=== PATIENT | male | born 1950 | race Caucasian/White ===

== ENCOUNTER 2016-08-20 17:21 | Emergency (ER) | payer OTHER ==
[~2016-08-20] VITALS: Ht 170.2 cm; Wt 79.4 kg
[2016-08-20] MEDS ORDERED: fentaNYL INJECTION 100 MCG/2 ML AMP ONE (17:29)
[2016-08-20] MEDS ORDERED: fentaNYL INJECTION 100 MCG/2 ML AMP IVP STA (17:36)
[2016-08-20] MEDS ORDERED: NS 100 ML (IVPB) BAG IV ONE (17:45)
[2016-08-20] MEDS ORDERED: IOHEXOL 350 MG/ML 100 ML (OMNIPAQUE 350) VIAL IV ONE (17:45)
[2016-08-20 17:47] LABS: BASOPHILS # (AUTO) 0.1 10^3/uL (0.0-0.1); BASOPHILS % (AUTO) 1 % (0-10); EOSINOPHILS # (AUTO) 0.7 10^3/uL (0.0-0.3); EOSINOPHILS % (AUTO) 7 % (0-10); LYMPHOCYTES # (AUTO) 2.8 X 10^3 (1.0-4.0); LYMPHOCYTES % (AUTO) 29 % (12-44); MEAN CORPUSCULAR HEMOGLOBIN 28 PG (25-34); MEAN CORPUSCULAR HGB CONC 34 G/DL (32-36); MEAN CORPUSCULAR VOLUME 83 FL (80-99); MONOCYTES % (AUTO) 10 % (0-12); NEUTROPHILS # (AUTO) 5.2 X 10^3 (1.8-7.8); NEUTROPHILS % (AUTO) 54 % (42-75); PLATELET COUNT 232 10^3/uL (130-400); RED BLOOD COUNT 5.31 10^6/uL (4.35-5.85); RED CELL DISTRIBUTION WIDTH 13.5 % (10.0-14.5); WHITE BLOOD COUNT 9.7 10^3/uL (4.3-11.0)
--- NOTE | 2016-08-20 17:52 | ED Fall/Injury ---
General Chief Complaint: Abdominal/GI Problems Stated Complaint: CHEST PAIN/SOB Source: patient Exam Limitations: no limitations (RACHEAL BIRCH MD) History of Present Illness Time seen by provider: 17:26 Initial Comments Here with complaint of left upper quadrant abdominal pain and left low chest wall pain associated with shortness of breath. He reports falling while pushing a box into his van on Friday morning (2 days ago) and hitting the left upper quadrant of the abdomen. He states that took his breath away that day. 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 He cannot outside of town when he started having severe left upper quadrant and left low chest wall pain. Abdomen is tense. He is having difficult time with taking deep breaths. Pain is reportedly 10 out of 10. Denies other injuries or concerns. Occurred: other (2 days ago) Severity: moderate, severe Injuries/Pain Location: chest, abdomen Context: slipped Loss of Consciousness: no loss of consciousness Modifying Factors: Improves With Immobilization, Worse With Movement Associated Symptoms (Fall): Abdominal Pain, Chest Pain, No Headache, Muscle Spasms, No Nausea/Vomiting, No Seizures, Shortness of Air (RACHEAL BIRCH MD ) Allergies and Home Medications Allergies Coded Allergies: No Known Drug Allergies (Unverified , 08/20/16) Home Medications Azithromycin 250 Mg Tablet, 250 MG PO UD, #6 TAKE 2 TABLETS ON DAY ONE THEN TAKE 1 TABLET DAILY FOR FOUR MORE DAYS Prescribed by: GRACIE GUILLEN on 08/20/161925 Hydrocodone/Acetaminophen 1 Each Tablet, 1-2 EACH PO Q6H PRN for PAIN, #20 Prescribed by: GRACIE GUILLEN on 08/20/161925 Constitutional: see HPI, No chills, No fever Eyes: No Symptoms Reported Ears, Nose, Mouth, Throat: no symptoms reported Respiratory: see HPI, short of breath, No wheezing Cardiovascular: see HPI, chest pain, No palpitations Gastrointestinal: abdominal pain, No diarrhea, No nausea, No vomiting Genitourinary: no symptoms reported Musculoskeletal: see HPI, No back pain, muscle pain Skin: no symptoms reported, No change in color, No lesions (RACHEAL BIRCH MD) All Other Systems Reviewed Negative Unless Noted: Yes (RACHEAL BIRCH MD) Past Hsbfnvx-Eeytsc-Qrppdn Hx Patient Social History Alcohol Use: Denies Use Recreational Drug Use: No Smoking Status: Never a Smoker (RACHEAL BIRCH MD) Seasonal Allergies Seasonal Allergies: No (RACHEAL BIRCH MD) Surgeries HX Surgeries: Yes Surgeries: Abdominal (RACHEAL BIRCH MD) Respiratory Hx Respiratory Disorders: No (RACHEAL BIRCH MD) Cardiovascular Hx Cardiac Disorders: No (RACHEAL BIRCH MD) Neurological Hx Neurological Disorders: No (RACHEAL BIRCH MD) Genitourinary Hx Genitourinary Disorders: No (RACHEAL BIRCH MD) Gastrointestinal Hx Gastrointestinal Disorders: No (RACHEAL BIRCH MD) Hx Gastrointestinal Disorders: Yes Gastrointestinal Disorders: Ulcer (history of perforated ulcer) (GRACIE VILLAGOMEZ MD) Musculoskeletal Hx Musculoskeletal Disorders: No (RACHEAL BIRCH MD) Endocrine Hx Endocrine Disorders: No (RACHEAL BIRCH MD) HEENT HX ENT Disorders: No (RACHEAL BIRCH MD) Cancer Hx Cancer: No (RACHEAL BIRCH MD) Reviewed Nursing Assessment Reviewed/Agree w Nursing PMH: Yes (RACHEAL BIRCH MD) Family Medical History Significant Family History: No Pertinent Family Hx (RACHEAL BIRCH MD) Physical Exam Vital Signs Vital Sign - Last 12Hours 08/20/16 17:21 Temp 98.3 Pulse 74 Resp 40 B/P (MAP) 181/105 Pulse Ox 94 O2 Delivery Room Air (GRACIE VILLAGOMEZ MD) Vital Signs Capillary Refill : (RACHEAL BIRCH MD) General Appearance: WD/WN, moderate distress HEENT: PERRL/EOMI, pharynx normal Neck: full range of motion, supple Cardiovascular: regular rate, rhythm, no murmur Respiratory: lungs clear, no accessory muscle use, other (tachypnea With short breaths due to pain) Peripheral Pulses: 2+ Dorsalis Pedis (R), 2+ Left Dors-Pedis (L), 2+ Radial Pulses (R), 2+ Radial Pulses (L) Gastrointestinal: tenderness, other (somewhat rigid and pain greatest in the left upper quadrant) Back: normal inspection, no CVA tenderness, no vertebral tenderness Extremities: non-tender, normal inspection Neurologic/Psychiatric: alert, oriented x 3 Skin: normal color, warm/dry, No diaphoresis, No ecchymosis (RACHEAL BIRCH MD) Sheridan Coma Score Best Eye Response: (4) Open Spontaneously Best Verbal Response: (5) Oriented Best Motor Response: (6) Obeys Commands (RACHEAL BIRCH MD) Progress/Results/Core Measures Results/Orders Lab Results Laboratory Tests Test 08/20/16 17:35 Range/Units White Blood Count 9.7 4.3-11.0 10^3/uL Red Blood Count 5.31 4.35-5.85 10^6/uL Hemoglobin 15.0 13.3-17.7 G/DL Hematocrit 44 40-54 % Mean Corpuscular Volume 83 80-99 FL Mean Corpuscular Hemoglobin 28 25-34 PG Mean Corpuscular Hemoglobin Concent 34 32-36 G/DL Red Cell Distribution Width 13.5 10.0-14.5 % Platelet Count 232 130-400 10^3/uL Mean Platelet Volume 10.0 7.4-10.4 FL Neutrophils (%) (Auto) 54 42-75 % Lymphocytes (%) (Auto) 29 12-44 % Monocytes (%) (Auto) 10 0-12 % Eosinophils (%) (Auto) 7 0-10 % Basophils (%) (Auto) 1 0-10 % Neutrophils # (Auto) 5.2 1.8-7.8 X 10^3 Lymphocytes # (Auto) 2.8 1.0-4.0 X 10^3 Monocytes # (Auto) 1.0 0.0-1.0 X 10^3 Eosinophils # (Auto) 0.7 H 0.0-0.3 10^3/uL Basophils # (Auto) 0.1 0.0-0.1 10^3/uL Sodium Level 140 135-145 MMOL/L Potassium Level 3.9 3.6-5.0 MMOL/L Chloride Level 108 H 98-107 MMOL/L Carbon Dioxide Level 20 L 21-32 MMOL/L Anion Gap 12 5-14 MMOL/L Blood Urea Nitrogen 16 7-18 MG/DL Creatinine 0.91 0.60-1.30 MG/DL Estimat Glomerular Filtration Rate > 60 BUN/Creatinine Ratio 18 0-20 Glucose Level 110 H 70-105 MG/DL Calcium Level 9.5 8.5-10.1 MG/DL Total Bilirubin 0.4 0.1-1.0 MG/DL Aspartate Amino Transf (AST/SGOT) 20 5-34 U/L Alanine Aminotransferase (ALT/SGPT) 18 0-55 U/L Alkaline Phosphatase 88 40-136 U/L Troponin I < 0.30 <0.30 NG/ML Total Protein 7.5 6.4-8.2 GM/DL Albumin 4.2 3.2-4.5 GM/DL Amylase Level 85 25-125 U/L Lipase 35 8-78 U/L (GRACIE VILLAGOMEZ MD) My Orders Orders - GRACIE VILLAGOMEZ MD Ketorolac Injection (Toradol Injection) (08/20/16 19:30) Hydrocodone/Apap 5/325 Tablet (Lortab 5 (08/20/16 20:00) (GRACIE VILLAGOMEZ MD) Medications Given in ED Current Medications Medications Dose Ordered Sig/Lyudmila Route Start Time Stop Time Status Last Admin Dose Admin Acetaminophen/ Hydrocodone Bitart 1 tab ONCE ONCE PO 08/20/16 20:00 08/20/16 20:00 DC 08/20/16 19:52 1 TAB Iohexol 100 ml ONCE ONCE IV 08/20/16 17:45 08/20/16 18:22 DC 08/20/16 18:20 100 ML Ketorolac Tromethamine 30 mg ONCE ONCE IVP 08/20/16 19:30 08/20/16 19:31 DC 08/20/16 19:28 30 MG Sodium Chloride 80 ml ONCE ONCE IV 08/20/16 17:45 08/20/16 18:22 DC 08/20/16 18:20 80 ML Sodium Chloride 1,000 ml @ 0 mls/hr Q0M ONCE IV 08/20/16 18:25 08/20/16 18:26 DC 08/20/16 18:56 0 MLS/HR (GRACIE VILLAGOMEZ MD) Vital Signs/I&O Vital Sign - Last 12Hours 08/20/16 08/20/16 08/20/16 08/20/16 17:21 19:07 19:40 19:50 Temp 98.3 98.1 Pulse 74 70 76 Resp 40 23 19 B/P (MAP) 181/105 147/86 Pulse Ox 94 97 94 O2 Delivery Room Air Room Air Room Air Room Air (GRACIE VILLAGOMEZ MD) Progress Note : Progress Note And chest x-ray ordered. Normal saline [address] of the chest, abdomen and pelvis ordered. Fentanyl 100 g IV ordered. Monitor patient. Bedside ultrasound performed by me fast exam shows no fluid in any of the 4 quadrants. Care transferred to Dr. Guillen pending CT scans at 1810. (RACHEAL BIRCH MD) Progress Note #1: Time: 19:26 Progress Note Care of this patient was assumed from Dr. Birch. CT imaging was pending at that time. CT has now been reviewed and report reviewed. Patient still has some pain and Toradol is being administered. No traumatic injury has been identified. There is atelectasis and/or infiltrate identified in the lung bases. Patient will be treated as though he has pneumonia. Azithromycin was prescribed. Patient states he does not tolerate NSAIDs due to history of perforated ulcer. Pain will be controlled in the outpatient setting with hydrocodone. Patient was advised to follow-up with his primary care provider soon as possible for monitoring of his condition and reevaluation of an incidental pulmonary lesion. This was discussed with the patient. See discharge instructions. Patient was reexamined and found to have splinting respirations with clear breath sounds. There is tenderness over the left lower anterior chest wall and over the left upper quadrant. Progress Note #2: Time: 19:49 Progress Note Patient reports significant improvement in pain after Toradol. However, he is still splinting. A hydrocodone tablet has been ordered to be given before departure. Respiratory therapy is instructing him on incentive spirometry at this time. (GRACIE VILLAGOMEZ MD) ECG Initial ECG Impression Date: Aug 20, 2016 Initial ECG Impression Time: 17:26 Initial ECG Rate: 73 Initial ECG Rhythm: Normal Sinus Comment Sinus rhythm with left anterior fascicular block. Left axis deviation. No evidence of ST elevation AL. No previous available for comparison. Interpreted by me. (RACHEAL BIRCH MD) Diagnostic Imaging Diagonstic Imaging: Xray Plain Films/CT/US/NM/MRI: chest Comments [facility] [place], [place] NAME: ERIAK STRATTON [facility] REC#: [id number] PT STATUS: REG ER : 1950 PHYSICIAN: RACHEAL BIRCH MD ADMIT DATE: 08/20/16/ER Draft Date of Exam:08/20/16 CHEST 1 VIEW, AP/PA ONLY INDICATION: Left-sided chest pain, fell on the left side. FINDINGS: An AP view of the chest demonstrates mild atelectasis in the left lung base. No pleural effusion or pneumothorax is present. Heart size and vascularity are normal. No fractures are visualized. IMPRESSION: There is mild left basilar atelectasis. Dictated on workstation # [id number] Dict: 08/20/16 1759 Trans: 08/20/16 1804 [id number] Interpreted by: PHUONG SPARKS MD Electronically signed by: Reviewed: Reviewed by Me (RACHEAL BIRCH MD) Diagonstic Imaging: CT Plain Films/CT/US/NM/MRI: chest, abdomen, pelvis Comments CT chest, abdomen and pelvis viewed by me and report reviewed. Verbal report given to Sanjiv Lozada APRN. See report below: NAME: ERIKA STRATTON [facility] REC#: [id number] PT STATUS: [facility] ER : 1950 PHYSICIAN: RACHEAL BIRCH MD ADMIT DATE: 08/20/16/ER Draft Date of Exam:08/20/16 CT CHEST/ABDOMEN/PELVIS W PROCEDURE: CT chest, abdomen, and pelvis with contrast. TECHNIQUE: Multiple contiguous axial images were obtained through the chest, abdomen, and pelvis after the administration of intravenous contrast. INDICATION: Fell, chest, abdomen, and pelvis pain. FINDINGS: There are no previous CT examinations available for comparison. The plain film examination of the chest performed earlier today noted left basilar atelectasis. On this exam, there is atelectasis/infiltrate involving the left lung base and to a lesser degree the right lower lobe. There is also a 1.6 x 3.7 cm parenchymal density in the right apex posteriorly. This is probably secondary to scar formation as opposed to a neoplastic mass. However, unless there are previous CT chest examinations available for comparison to demonstrate that this finding is stable, then a short-term (three-month) followup CT chest exam would be recommended for additional study. The lungs are otherwise clear. There is no sign of pneumothorax. There is no pleural effusion identified either. The heart size is within normal limits. The aorta is not abnormally dilated and there is no sign of dissection. The pulmonary arteries are not full opacified but there is no defect within the pulmonary arteries to indicate a pulmonary embolus. There is no mediastinal or hilar adenopathy. The thyroid gland is generally unremarkable. The bone windows show no evidence for fracture. The sections through the abdomen and pelvis show that there are a few small rounded areas of low density within the liver. The largest of these is in the right lobe near the falciform ligament and measures 1.0 x 2.2 cm. I suspect that these are cysts. The liver is otherwise unremarkable. The spleen, pancreas, adrenals, kidneys, gallbladder, aorta, and inferior vena cava show no sign of an acute abnormality. The stomach is partially filled with fluid and consequently difficult to assess. There does appear to be a small 1.7 x 2.6 cm hiatal hernia. There is some fluid in the small bowel. This appearance is nonspecific, however. There is no sign of bowel obstruction. The appendix was visualized and is not abnormally thickened. The prostate gland and urinary bladder are grossly unremarkable. The bone windows through the abdomen and pelvis failed to show any sign of an acute abnormality. There is fairly severe degenerative disc and bony disease at L5-S1. IMPRESSION: 1. There is bibasilar pneumonia/atelectasis with greater involvement on the left. There is no sign of a pneumothorax or of a pleural effusion, however. 2. The abnormal density in the apex of the right lung is more likely due to scar formation than to neoplasm. Recommendations as above. 3. There are fluid-filled segments of small bowel present. This finding is nonspecific and could be secondary to an ileus. There is no sign of a bowel obstruction. 4. There is no acute abnormality of the abdomen or pelvis, nevertheless. 5. These results will be discussed with Dr. Birch in the ER. Dictated on workstation # [id number] Dict: 08/20/16 1835 Trans: 08/20/16 4872 [id number] [id number] Interpreted by: CHITRA PENG MD (GRACIE VILLAGOMEZ MD) Departure Impression Impression: Primary Impression: Chest wall pain Additional Impressions: Lesion of lung Left upper quadrant pain Fall with injury Qualified Codes: W19.XXXA - Unspecified fall, initial encounter Pulmonary infiltrate Disposition: 01 HOME, SELF-CARE Condition: Improved Departure-Patient Inst. Decision time for Depature: 19:02 (GRACIE VILLAGOEMZ MD) Patient Instructions: Community-Acquired Pneumonia in Adults Add. Discharge Instructions: Use hydrocodone as prescribed for pain. Exercise deep breathing at least 10 times per hour while awake. Stay ahead of your pain to make deep breathing easier. Complete your antibiotic as prescribed. Follow-up with a primary care provider as soon as possible. Review your CT report with your doctor. The radiologist has advised that you have a repeat CT scan performed in about 3 months for evaluation of the lesion in your right upper lung. This should be done at the direction of your primary care provider. Return to the emergency room if symptoms worsen or your pain is not controlled. Also return if you develop new symptoms such as fever over 100. All discharge instructions reviewed with patient and/or family. Voiced understanding. Scripts Hydrocodone/Acetaminophen (Hydrocodon -Acetaminophen 5-325) 1 Each Tablet 1-2 EACH PO Q6H Y for PAIN, #20 TAB Prov: GRACIE VILLAGOMEZ MD 08/20/16 Azithromycin (Azithromycin) 250 Mg Tablet 250 MG PO UD, #6 TAB TAKE 2 TABLETS ON DAY ONE THEN TAKE 1 TABLET DAILY FOR FOUR MORE DAYS Prov: GRACIE VILLAGOMEZ MD 08/20/16 RACHEAL BIRCH MD Aug 20, 2016 17:52 GRACIE VILLAGOMEZ MD Aug 20, 2016 19:03
--- NOTE | 2016-08-20 18:05 | Diagnostic Imaging Report ---
INDICATION: Left-sided chest pain, fell on the left side. FINDINGS: An AP view of the chest demonstrates mild atelectasis in the left lung base. No pleural effusion or pneumothorax is present. Heart size and vascularity are normal. No fractures are visualized. IMPRESSION: There is mild left basilar atelectasis. Dictated by: Dictated on workstation # [id number]
[2016-08-20 18:11] LABS: ALANINE AMINOTRANSFERASE 18 U/L (0-55); ALBUMIN 4.2 GM/DL (3.2-4.5); AMYLASE 85 U/L (25-125); ANION GAP 12 MMOL/L (5-14); ASPARTATE AMINO TRANSFERASE 20 U/L (5-34); BILIRUBIN,TOTAL 0.4 MG/DL (0.1-1.0); BLOOD UREA NITROGEN 16 MG/DL (7-18); BUN/CREATININE RATIO 18 (0-20); CALCIUM 9.5 MG/DL (8.5-10.1); CARBON DIOXIDE 20 MMOL/L (21-32); CHLORIDE 108 MMOL/L (98-107); CREATININE SERUM 0.91 MG/DL (0.60-1.30); GFR ESTIMATED > 60; GLUCOSE 110 MG/DL (70-105); HEMOLYSIS 9 (-100-29); ICTERUS 0.5 (-100-1.9); LIPASE 35 U/L (8-78); LIPEMIA 23 (-100-49); POTASSIUM 3.9 MMOL/L (3.6-5.0); SODIUM 140 MMOL/L (135-145); TOTAL PROTEIN 7.5 GM/DL (6.4-8.2)
[2016-08-20 18:17] LABS: TROPONIN I < 0.30 NG/ML (<0.30)
[2016-08-20] MEDS ORDERED: NS IV 1000 ML 1,000 ML IV ONE (18:25)
--- NOTE | 2016-08-20 18:55 | Diagnostic Imaging Report ---
PROCEDURE: CT chest, abdomen, and pelvis with contrast. TECHNIQUE: Multiple contiguous axial images were obtained through the chest, abdomen, and pelvis after the administration of intravenous contrast. INDICATION: Fell, chest, abdomen, and pelvis pain. FINDINGS: There are no previous CT examinations available for comparison. The plain film examination of the chest performed earlier today noted left basilar atelectasis. On this exam, there is atelectasis/infiltrate involving the left lung base and to a lesser degree the right lower lobe. There is also a 1.6 x 3.7 cm parenchymal density in the right apex posteriorly. This is probably secondary to scar formation as opposed to a neoplastic mass. However, unless there are previous CT chest examinations available for comparison to demonstrate that this finding is stable, then a short-term (three-month) followup CT chest exam would be recommended for additional study. The lungs are otherwise clear. There is no sign of pneumothorax. There is no pleural effusion identified either. The heart size is within normal limits. The aorta is not abnormally dilated and there is no sign of dissection. The pulmonary arteries are not full opacified but there is no defect within the pulmonary arteries to indicate a pulmonary embolus. There is no mediastinal or hilar adenopathy. The thyroid gland is generally unremarkable. The bone windows show no evidence for fracture. In particular, there is no displaced fracture of the left ribs. There is degenerative disc and bony disease at L5-S1. The sections through the abdomen and pelvis show that there are a few small rounded areas of low density within the liver. The largest of these is in the right lobe near the falciform ligament and measures 1.0 x 2.2 cm. I suspect that these are cysts. The liver is otherwise unremarkable. The spleen, pancreas, adrenals, kidneys, gallbladder, aorta, and inferior vena cava show no sign of an acute abnormality. The stomach is partially filled with fluid and consequently difficult to assess. There does appear to be a small 1.7 x 2.6 cm hiatal hernia. There is some fluid in the small bowel. This appearance is nonspecific, however. There is no sign of bowel obstruction. The appendix was visualized and is not abnormally thickened. The prostate gland and urinary bladder are grossly unremarkable. The bone windows through the abdomen and pelvis failed to show any sign of an acute abnormality. There is fairly severe degenerative disc and bony disease at L5-S1. IMPRESSION: 1. There is bibasilar pneumonia/atelectasis with greater involvement on the left. There is no sign of a pneumothorax or of a pleural effusion, however. 2. The abnormal density in the apex of the right lung is more likely due to scar formation than to neoplasm. Recommendations as above. 3. There are fluid-filled segments of small bowel present. This finding is nonspecific and could be secondary to an ileus. There is no sign of a bowel obstruction. 4. There is no acute abnormality of the abdomen or pelvis, nevertheless. 5. These results were discussed with Sanjiv Lozada APRN in the ER. Dictated by: Dictated on workstation # [id number]
[2016-08-20] MEDS ORDERED: HYDR-3812 PO (19:26)
[2016-08-20] MEDS ORDERED: AZIT250T5 PO (19:26)
[2016-08-20] MEDS ORDERED: KETOROLAC 30 MG/ML VIAL IVP ONE (19:30)
[2016-08-20 19:40] VITALS: BP 158/94
[2016-08-20] MEDS ORDERED: HYDROcodone/APAP 5 MG/325 MG (LORTAB) TAB PO ONE (20:00)
== END 2016-08-20 19:53 | disposition home or self-care (01) ==
LOC: ER 17:26
DX: R07.89 Other chest pain (principal); R10.12 Left upper quadrant pain; R91.1 Solitary pulmonary nodule; R91.8 Other nonspecific abnormal finding of lung field; Z87.19 Personal history of other diseases of the digestive system; W01.10XA Fall on same level from slipping, tripping and stumbling with subsequent striking against unspecified object, initial encounter; Y92.89 Other specified places as the place of occurrence of the external cause
CPT/HCPCS: 36415; 71010; 71260; 74177; 80053; 82150; 83690; 84484; 85025; 86850; 86900; 86901; 93005; 93041; 94664